=== PATIENT | male | born 1975 | race American Indian/Alaskan Native ===

== ENCOUNTER 2016-08-01 12:52 | Emergency (ER) | payer OTHER ==
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
[2016-08-01] MEDS ORDERED: BOOSTRIX IM ONE (16:43)
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
[2016-08-01] MEDS: XYLOCAINE 2% INFILTRATI ONE (16:54)
[2016-08-01] MEDS: ANCEF IM ONE (17:30)
[2016-08-01] MEDS: BOOSTRIX IM ONE (17:30)
[2016-08-01 18:22] VITALS: BP 112/63
== END 2016-08-01 18:37 | disposition home or self-care (01) ==
LOC: ED 12:52
DX: S62.632B Displaced fracture of distal phalanx of right middle finger, initial encounter for open fracture (principal); S61.202A Unspecified open wound of right middle finger without damage to nail, initial encounter; I10 Essential (primary) hypertension; F12.10 Cannabis abuse, uncomplicated; Z87.891 Personal history of nicotine dependence; W34.09XA Accidental discharge from other specified firearms, initial encounter; Y93.89 Activity, other specified; Y92.89 Other specified places as the place of occurrence of the external cause; Y99.8 Other external cause status
CPT/HCPCS: 90471; 90715; 96372; J0690